=== PATIENT | male | born 1960 | race Two or more races ===

== ENCOUNTER 2021-08-07 13:48 | Emergency (ER) | payer OTHER ==
[~2021-08-07] VITALS: Ht 172.7 cm; Wt 90.3 kg
--- NOTE | 2021-08-07 14:37 | NUR ---
DR. FREDERICK AT BEDSIDE FOR EVAL.
--- NOTE | 2021-08-07 15:37 | NUR ---
PD AT BEDSIDE
[2021-08-07] MEDS ORDERED: IBUP-1955 PO (15:39)
[2021-08-07] MEDS ORDERED: CYCL5TAB PO (15:39)
--- NOTE | 2021-08-07 15:55 | NUR ---
Patient able to move neck without any difficulty. Patient ambulatory with a steady gait.
--- NOTE | 2021-08-07 16:01 | NUR ---
PATIENT A/OX4, BREATHING EVEN AND UNLABORED, NO SOB NOTED. NEEDS ATTENDED. Patient discharged to home in stable condition. Written and verbal after care instructions given. Patient verbalizes understanding of instruction.
[2021-08-07 16:02] VITALS: BP 130/90
== END 2021-08-07 16:02 | disposition home or self-care (01) ==
LOC: ER 14:00
DX: S16.1XXA Strain of muscle, fascia and tendon at neck level, initial encounter (principal); S00.511A Abrasion of lip, initial encounter; S09.90XA Unspecified injury of head, initial encounter; Y04.8XXA Assault by other bodily force, initial encounter; Y93.89 Activity, other specified; Y92.89 Other specified places as the place of occurrence of the external cause; Y99.8 Other external cause status
CPT/HCPCS: 70450-TC; 72125-TC